=== PATIENT | female | born 1990 | race Hispanic/Latino ===

== ENCOUNTER 2017-09-01 02:03 | Outpatient (CLI) | payer MEDICAID ==
[2017-09-01 02:07] VITALS: BP 126/81
[2017-09-01] MEDS ORDERED: LACTATED RINGERS 500 ML IV ONE (02:20)
[2017-09-01] MEDS ORDERED: TYLENOL PO ONE (02:31)
[2017-09-01] MEDS ORDERED: VISTARIL PO ONE (02:46)
[2017-09-01 03:04] LABS: Bacteria,Urine 1+ /HPF (Negative); Bilirubin,Urine NEG (Negative); Blood,Urine LG (Negative); Color,Urine Yellow (Yellow); Mucus,Urine FEW /HPF; Protein,Urine <15 mg/dL mg/dL (Negative); Urobilinogen,Urine < 2.0 mg/dL (<2.0)
[2017-09-01 03:09] LABS: RBC,Urine > 182.0 /HPF (0.0-6.0)
[2017-09-01] MEDS ORDERED: cefTRIAXone 1 GM in NACL 0.9% 20 ML IV SCH (04:00)
[2017-09-01] MEDS ORDERED: LACTATED RINGERS 500 ML IV SCH (04:00)
== END 2017-09-01 04:15 | disposition home or self-care (01) ==
LOC: TRG 02:03
PROVIDERS: ATTEND Obstetrics & Gynecology
DX: O26.893 Other specified pregnancy related conditions, third trimester (principal); M54.9 Dorsalgia, unspecified; R10.9 Unspecified abdominal pain; Z3A.35 35 weeks gestation of pregnancy
CPT/HCPCS: 59025; 81001; 96360; 96361; 96365; J0696; J7120; Q0177

== ENCOUNTER 2017-09-26 17:55 | Outpatient (CLI) | payer MEDICAID ==
[2017-09-26 19:26] VITALS: BP 100/67
--- NOTE | 2017-09-26 19:34 | Ultrasound Report ---
FINAL REPORT PROCEDURE: US OB LIMITED TECHNIQUE: Real-time limited sonographic examination was performed for evaluation of size, position, heartbeat, fluid volume for each fetus with image documentation (1 or more fetuses). CPT 81063 HISTORY: PRESENTATION COMPARISON: No prior studies are available for comparison. FINDINGS: FETUS IUP: Single living intrauterine . Position: Cephalic. Amniotic fluid volume: Amniotic fluid index measures 12.3 centimeters Heart rate and rhythm: 143 BPM, Regular . IMPRESSION: Amniotic fluid index measures 12.3 centimeters
--- NOTE | 2017-09-26 19:36 | Ultrasound Report ---
FINAL REPORT PROCEDURE: US OB BPP WO NON-STRESS TECHNIQUE: Sonographic evaluation for breathing, movement, tone, and amniotic fluid volume was performed. CPT 46500 HISTORY: well being COMPARISON: No prior studies are available for comparison. FINDINGS: Amniotic fluid volume: Normal-score 2. At least one vertical pocket > 2 cm or more in vertical axis. breathing: Normal-score 2. movement: Normal-score 2. tone: Normal-score 2. Score: 8 of 8. IMPRESSION: Normal biophysical profile.
[2017-09-26] MEDS ORDERED: LACTATED RINGERS 1,000 ML IV SCH (20:00)
== END 2017-09-26 21:05 | disposition home or self-care (01) ==
LOC: TRG 17:55
PROVIDERS: ATTEND Obstetrics & Gynecology
DX: O47.1 False labor at or after 37 completed weeks of gestation (principal); Z3A.38 38 weeks gestation of pregnancy
CPT/HCPCS: 59025; 76815; 76819; J7120

== ENCOUNTER 2017-09-27 10:55 | Outpatient (CLI) | payer MEDICAID ==
[2017-09-27 11:09] VITALS: BP 107/64
== END 2017-09-27 12:18 | disposition home or self-care (01) ==
LOC: TRG 10:55
PROVIDERS: ATTEND Obstetrics & Gynecology
DX: Z34.93 Encounter for supervision of normal pregnancy, unspecified, third trimester (principal); Z3A.39 39 weeks gestation of pregnancy

== ENCOUNTER 2017-09-28 15:31 | Outpatient (CLI) | payer MEDICAID ==
[2017-09-28 16:31] VITALS: BP 99/68
--- NOTE | 2017-09-28 18:09 | Ultrasound Report ---
FINAL REPORT EXAM: US OB BPP WO NON-STRESS HISTORY: well being TECHNIQUE: Biophysical profile obstetrical ultrasound PRIORS: ultrasound BPP 09/26/2017 FINDINGS: Biophysical profile scoring 2 movement 2 tone 2 breathing 2 fluid 8/8 overall score IMPRESSION: Single intrauterine viable with a biophysical profile score 8/8. No change.
--- NOTE | 2017-09-28 18:42 | Ultrasound Report ---
FINAL REPORT EXAM: US OB LIMITED HISTORY: ROBERT TECHNIQUE: Limited obstetrical ultrasound PRIORS: Ob ultrasound 09/26/2017 FINDINGS: LMP: 12/28/2016 clinical Age: 39 W 1 d LMP EDC 10/04/2017 Presentation: Cephalic Activity: Monitored Cardiac motion: 143 BPM using M-mode doppler Amniotic Fluid Volume: Adequate ROBERT 7.0 cm (lowest limits of normal) IMPRESSION: Single intrauterine viable with an approximate age of 39 weeks 1 days.
== END 2017-09-28 18:00 | disposition home or self-care (01) ==
LOC: TRG 15:31
PROVIDERS: ATTEND Obstetrics & Gynecology
DX: O42.92 Full-term premature rupture of membranes, unspecified as to length of time between rupture and onset of labor (principal); Z3A.39 39 weeks gestation of pregnancy
CPT/HCPCS: 76815; 76819

== ENCOUNTER 2017-09-29 13:36 | Outpatient (CLI) | payer MEDICAID ==
[2017-09-29 15:22] VITALS: BP 117/74
[2017-09-29] MEDS ORDERED: LACTATED RINGERS 1,000 ML ONE (17:39)
== END 2017-09-29 18:00 | disposition home or self-care (01) ==
LOC: TRG 13:36
PROVIDERS: ATTEND Obstetrics & Gynecology
DX: O47.1 False labor at or after 37 completed weeks of gestation (principal); Z3A.39 39 weeks gestation of pregnancy
CPT/HCPCS: 96360; J7120

== ENCOUNTER 2017-09-30 02:52 | Inpatient (IN) | payer MEDICAID ==
[2017-09-30] MEDS ORDERED: SUBLIMAZE IV PRN (04:29)
[2017-09-30 04:42] LABS: Hematocrit 28.9 % (30.3-42.9); Mean Corpuscular HGB Conc 35 % (30-34); Mean Corpuscular Hemoglobin 30 pg (28-32); Mean Corpuscular Volume 86 fl (79-97); Platelet Count 282 K/mm3 (140-440); Red Blood Count 3.37 M/mm3 (3.65-5.03); Red Cell Distribution Width 13.4 % (13.2-15.2)
[2017-09-30] MEDS ORDERED: PITOCin/NS 20 UNIT/1000ML DRIP 20 UNITS/1,000 ML BAG IV SCH (05:00)
[2017-09-30] MEDS ORDERED: PITOCin/NS 30 UNIT/500ML 30 UNITS/500 ML BAG IV SCH (08:30)
[2017-09-30] MEDS: LACTATED RINGERS 1,000 ML IV SCH ×2 (08:37→10:15)
[2017-09-30] MEDS ORDERED: ePHEDrine SULFATE ONE (10:56)
--- NOTE | 2017-09-30 11:08 | History and Physical Report ---
History of Present Illness Date of examination: 09/30/17 Date of admission: 09/30/17 04:48 Chief complaint: My water broke History of present illness: Patient is a 27-year-old 4 para 3 who presents with complaint of ruptured membranes. Her EDC is 10/04/2017 which makes her 39 weeks and 3 days. She entered care at 9 weeks and has had an uncomplicated course except for kidney stones and an abnormal Pap smear showing a high-grade lesion. Past History Past Medical History: no pertinent history Past Surgical History: no surgical history Family/Genetic History: none Social history: - Obstetrical History Expected Date of Delivery: 10/04/17 Actual Gestation: 39 Week(s) 3 Day(s) : 4 Para: 2 Number of Living Children: 2 Medications and Allergies Allergies Allergy/AdvReac Type Severity Reaction Status Date / Time azithromycin [From Zithromax] Allergy Severe Anaphylaxis Verified 09/26/17 19:37 Home Medications Medication Instructions Recorded Confirmed Last Taken Type Ranitidine HCl 1 tab PO TID 09/26/17 09/30/17 09/29/17 History Active Meds: Active Medications Fentanyl (Sublimaze) 100 mcg IV Q2H PRN PRN Reason: Labor Pain Last Admin: 09/30/17 07:41 Dose: 100 mcg Lactated Ringer's (Lactated Ringers) 1,000 mls @ 125 mls/hr IV DIRECT MARY Last Admin: 09/30/17 08:37 Dose: 125 mls/hr Oxytocin/Sodium Chloride (Pitocin/Ns 20 Unit/1000ml Drip) 20 units in 1,000 mls @ 125 mls/hr IV DIRECT MARY Oxytocin/Sodium Chloride (Pitocin/Ns 30 Unit/500ml) 30 units in 500 mls @ 4 mls /hr IV TITR MARY; Protocol Last Titration: 09/30/17 10:40 Dose: 12 ml/hr, 12 mls/hr Review of Systems All systems: negative Genitourinary: leakage of fluid, contractions Rectal Exam: deferred - Vital Signs Vital signs: Vital Signs Pulse BP 83 111/69 09/30/17 04:03 09/30/17 04:03 Temp Pulse Resp BP Pulse Ox 98.5 F 96 H 16 149/95 94 09/30/17 10:38 09/30/17 11:03 09/30/17 10:38 09/30/17 11:03 09/30/17 10:42 - Physical Exam Breasts: Cardiovascular: Regular rate, Normal S1, Normal S2 Lungs: Positive: Clear to auscultation, Normal air movement Abdomen: Positive: normal appearance, soft, normal bowel sounds. Negative: distention, tenderness Vulva: both: normal Vagina: Positive: normal moisture. Negative: discharge Cervix: Negative: lesion, discharge Uterus: Positive: normal size, normal contour Adnexa: both: normal Anus/Rectum: Positive: normal perianal skin, heme negative. Negative: rectal mass, hemorrhoids Extremities: Deep Tendon Reflex Grade: Normal +2 - Obstetrical Cervical Dilatation: 1 Cervical Effacement Percentage: 30 station: 3 Uterine Contraction Pattern: Irregular Results Result Diagrams: 09/30/17 04:20 Abnormal lab results 09/30/17 Range/Units 04:20 WBC 12.5 H (4.5-11.0) K/mm3 RBC 3.37 L (3.65-5.03) M/mm3 Hgb 10.0 L (10.1-14.3) gm/dl Hct 28.9 L (30.3-42.9) % MCHC 35 H (30-34) % All other labs normal. Assessment and Plan IUP at 39+ with srom. Admit for labor Augmentation. GBS negative. anticipate .
[2017-09-30] MEDS ORDERED: XYLOCAINE 2% INFILTRATI ONE (11:39)
[2017-09-30] MEDS ORDERED: fentaNYL-BUPIV 2 MCG/ML-0.125% 200 MCG/100 ML BAG EPIDURAL SCH (13:00)
[2017-09-30] MEDS ORDERED: ePHEDrine SULFATE IV PRN (13:00)
[2017-09-30] MEDS ORDERED: NARCAN 2 MG/2 ML IV PRN (13:00)
[2017-09-30] MEDS ORDERED: PHENERGAN PR PRN (16:47)
[2017-09-30] MEDS ORDERED: PHENERGAN PO PRN (16:47)
[2017-09-30] MEDS ORDERED: ZOFRAN IV PRN (16:47)
[2017-09-30] MEDS ORDERED: DULCOLAX PR PRN (16:47)
[2017-09-30] MEDS ORDERED: MILK OF MAGNESIA PO PRN (16:47)
[2017-09-30] MEDS ORDERED: TUCKS PAD TP PRN (16:47)
[2017-09-30] MEDS ORDERED: LANSINOH TP PRN (16:47)
[2017-09-30] MEDS ORDERED: BENADRYL PO PRN (16:47)
[2017-09-30] MEDS ORDERED: SODIUM CHLORIDE FLUSH SYRINGE 10 ML IV NR (17:00)
[2017-09-30] MEDS: NORCO 5/325 PO PRN (17:31)
[2017-09-30] MEDS: MOTRIN PO SCH ×2 (17:32→23:34)
[2017-09-30] MEDS: TYLENOL PO PRN (19:35)
[2017-09-30] MEDS: COLACE PO SCH (21:57)
[2017-10-01] MEDS: NORCO 5/325 PO PRN (02:55)
[2017-10-01] MEDS: MOTRIN PO SCH ×4 (05:50→23:50)
[2017-10-01] MEDS ORDERED: BOOSTRIX IM ONE (06:00)
[2017-10-01 06:20] LABS: Hematocrit 28.6 % (30.3-42.9); Hemoglobin 9.8 gm/dl (10.1-14.3)
--- NOTE | 2017-10-01 08:35 | Procedure Note ---
OB Delivery Note - Delivery Date of Delivery: 10/01/17 Surgeon: FAUZIA MAURER Estimated blood loss: <100cc - Vaginal Delivery presentation: vertex Delivery position: OA Intrapartum events: PROM->1hr before delivery Delivery induction: oxytocin Delivery augmentation: pitocin Delivery monitor: external FHT, external uterine Route of delivery: Delivery placenta: spontaneous Episiotomy: none Delivery laceration: none Anesthesia: epidural - A at 1 minute: 8 (7lb 3oz) at 5 minutes: 9 Infant Gender: Female
--- NOTE | 2017-10-01 08:42 | Progress Note ---
Assessment and Plan A: PPD#1 s/p ; Obesity, Asymptomatic anemia P Routine care. Anticipate discharge tomorrow. Subjective - Subjective Date of service: 10/01/17 Principal diagnosis: PPD#1 s/p Interval history: No overnight events Patient reports: appetite normal, voiding normally, pain well controlled, ambulating normally : doing well Objective - Vital Signs Latest vital signs: Vital Signs Temp Pulse Resp BP BP Pulse Ox 10/01/17 00:00 98.6 F 77 18 114/69 09/30/17 19:40 98.6 F 77 16 101/78 09/30/17 18:28 99.3 F 109 H 18 124/72 97 09/30/17 16:00 98.9 F 107 H 20 133/85 09/30/17 15:46 100 H 112/61 09/30/17 15:31 110 H 123/59 09/30/17 15:26 97.8 F 16 09/30/17 14:30 105 H 108/57 09/30/17 14:15 102 H 110/58 09/30/17 14:13 97.6 F 16 09/30/17 14:05 93 H 107/58 09/30/17 14:01 96 H 105/58 09/30/17 14:00 99.3 F 18 09/30/17 13:14 88 110/57 09/30/17 12:58 106 H 126/67 09/30/17 12:45 99.0 F 20 09/30/17 12:31 90 115/58 09/30/17 12:15 87 112/62 09/30/17 12:14 96 H 119/67 09/30/17 12:11 85 108/58 09/30/17 12:09 99 H 116/58 09/30/17 12:07 94 H 114/55 09/30/17 12:05 96 H 116/56 09/30/17 12:04 113 H 121/57 09/30/17 12:01 95 H 130/62 09/30/17 12:00 130 H 118/61 09/30/17 11:58 131 H 115/55 09/30/17 11:56 112 H 140/66 09/30/17 11:53 112 H 123/80 09/30/17 11:51 107 H 124/74 09/30/17 11:50 106 H 123/75 09/30/17 11:47 105 H 136/67 09/30/17 11:45 98 H 131/64 09/30/17 11:43 93 H 138/62 09/30/17 11:42 92 H 144/61 09/30/17 11:39 87 142/66 09/30/17 11:37 109 H 146/56 09/30/17 11:35 79 137/65 09/30/17 11:33 83 131/63 09/30/17 11:31 99 H 132/77 09/30/17 11:29 92 H 126/74 09/30/17 11:28 106 H 127/75 09/30/17 11:03 96 H 149/95 09/30/17 10:42 87 94 09/30/17 10:41 86 109/67 09/30/17 10:38 98.5 F 16 Intake and Output 09/30/17 10/01/17 10/01/17 22:59 06:59 14:59 Intake Total 300 Output Total 700 Balance -700 300 Intake: Intake, Free Water 300 Output: Urine 700 Indwelling Catheter 700 Other: Total, Output Amount 600 - Exam Breasts: Present: deferred Cardiovascular: Present: Regular rate Lungs: Present: Clear to auscultation Abdomen: Present: soft Uterus: Present: fundal height at umbilicus Extremities: Present: normal - Labs Labs: Abnormal lab results 10/01/17 Range/Units 05:53 Hgb 9.8 L (10.1-14.3) gm/dl Hct 28.6 L (30.3-42.9) %
--- NOTE | 2017-10-01 08:50 | Discharge Summary ---
Providers - Providers Date of Admission: 09/30/17 04:48 Date of discharge: 10/01/17 Attending physician: LILLIE ZARATE MD Primary care physician: LILLIE ZARATE MD Hospitalization Reason for admission: rupture of membranes Delivery: Procedure details: Please see delivery note. Episiotomy: none Laceration: none Other procedures: none complications: none Discharge diagnosis: IUP at term delivered [place] baby: female Hospital course: Pt was admitted with rupture of membranes and went on to have an which she tolerated well. Her course was uncomplicated and she met discharge criteria on PPD#2. Condition at discharge: Stable Disposition: DC-01 TO HOME OR SELFCARE - Discharge Diagnoses (1) Term of female Status: Acute (2) Obesity Status: Acute (3) Anemia Status: Acute Plan - Provider Discharge Summary Activity: routine, no sex for 6 weeks, no heavy lifting 4 weeks, no strenuous exercise Diet: routine Instructions: routine Additional instructions: [] Smoking cessation referral if applicable(refer to patient education folder for contact #) [] Refer to [facility]'s [facility] Booklet Call your doctor immediately for: * Fever > 100.5 * Heavy vaginal bleeding ( >1 pad per hour) * Severe persistent headache * Shortness of breath * Reddened, hot, painful area to leg or breast * Drainage or odor from incision. * Keep incision clean and dry at all times and follow doctor's instructions regarding bathing/showering - Follow up plan Follow up: HARRIS MONTENEGRO MD [Staff Physician] - 7 Days
[2017-10-01] MEDS: PRENATAL VITAMIN PO SCH (09:27)
[2017-10-01] MEDS: TYLENOL PO PRN (09:27)
[2017-10-01] MEDS: COLACE PO SCH ×2 (09:30→22:19)
[2017-10-02] MEDS: MOTRIN PO SCH ×2 (06:20→12:24)
[2017-10-02] MEDS: NORCO 5/325 PO PRN (08:34)
[2017-10-02] MEDS: PRENATAL VITAMIN PO SCH (10:15)
[2017-10-02] MEDS: COLACE PO SCH (10:15)
[2017-10-02 14:39] VITALS: BP 114/71
== END 2017-10-02 14:15 | disposition home or self-care (01) | DRG 775 ==
LOC: TRG 02:52 → LD 04:48 → OB 16:38
PROVIDERS: ADMIT Obstetrics & Gynecology; ATTEND Obstetrics & Gynecology
PROC: 10E0XZZ Delivery of Products of Conception, External Approach (ICD-10-PCS; principal; 2017-10-01)
PROC: 3E0R3BZ Introduction of Anesthetic Agent into Spinal Canal, Percutaneous Approach (ICD-10-PCS; 2017-10-01)
PROC: 00HU33Z Insertion of Infusion Device into Spinal Canal, Percutaneous Approach (ICD-10-PCS; 2017-10-01)
PROC: 3E033VJ Introduction of Other Hormone into Peripheral Vein, Percutaneous Approach (ICD-10-PCS; 2017-10-01)
DX: O42.02 Full-term premature rupture of membranes, onset of labor within 24 hours of rupture (principal); Z3A.39 39 weeks gestation of pregnancy; Z37.0 Single live birth; O99.214 Obesity complicating childbirth; E66.9 Obesity, unspecified; Z68.41 Body mass index [BMI] 40.0-44.9, adult; O99.02 Anemia complicating childbirth; D64.9 Anemia, unspecified; Z88.8 Allergy status to other drugs, medicaments and biological substances
CPT/HCPCS: 36415; 85014; 85018; 85027; 86592; 86850; 86900; 86901; 88307; 90715; 99211; A6250; G0463; J2590; J3010; J7120

== ENCOUNTER 2017-12-11 06:13 | Day surgery (SDC) | payer MEDICAID ==
--- NOTE | 2017-12-10 17:14 | History and Physical Report ---
History of Present Illness Date of examination: 12/05/17 Chief complaint: undesired fertility, HSIL pap smear History of present illness: Pt is a 27 year old who presents for surgical sterilization despite awareness of long-acting reversible contraceptives. She also had a HGSIL pap smear and desires surgical management. Past History Past Medical History: kidney stones [employer] History: abnormal PAP smear, chlamydia (remote history), gonorrhea (remote history ) Family/Genetic History: none Social history: no significant social history - Obstetrical History : 4 Medications and Allergies Allergies Allergy/AdvReac Type Severity Reaction Status Date / Time azithromycin [From Zithromax] Allergy Severe Anaphylaxis Verified 12/10/17 13:31 Home Medications Medication Instructions Recorded Confirmed Last Taken Type No Known Home Medications [No 12/10/17 12/10/17 Unknown History Reported Home Medications] - Physical Exam Breasts: Positive: deferred Cardiovascular: Regular rate Lungs: Positive: Clear to auscultation Abdomen: Positive: soft (obese) Extremities: Positive: normal Results All other labs normal. Assessment and Plan A: Undesired Fertility HGSIL pap smear Obesity P: Proceed with laparoscopic bilateral tubal ligation, Loop Electrosurgical Excision Procedure (LEEP) and other indicated procedures.
[~2017-12-11 06:13] MED LIST: ANCEF/STERILE WATER 2 GM/20 ML 2 GM/20 ML SYRINGE IV NR; LACTATED RINGERS 1,000 ML IV SCH
[2017-12-11] MEDS ORDERED: NACL BACTERIOSTATIC INFILTRATI ONE (06:35)
[2017-12-11] MEDS ORDERED: MARCAINE 0.5% 30 ML INFILTRATI ONE (07:15)
[2017-12-11] MEDS ORDERED: MONSEL'S TP ONE ×2 (07:15→09:00)
[2017-12-11] MEDS ORDERED: XYLOCAINE 1%/ EPI 1:100,000 INFILTRATI ONE ×2 (07:15→07:17)
[2017-12-11] MEDS ORDERED: LUGOL'S SOLUTION 5% TP ONE ×3 (07:15→08:55)
[2017-12-11] MEDS ORDERED: ACETIC ACID 3% SOLN TP ONE (07:16)
[2017-12-11] MEDS ORDERED: XYLOCAINE MPF 2% ONE (07:16)
[2017-12-11] MEDS ORDERED: DILAUDID ONE ×3 (07:16→09:55)
[2017-12-11] MEDS ORDERED: ZEMURON IV ONE (07:16)
[2017-12-11] MEDS ORDERED: DIPRIVAN 10 MG/ML IV ONE (07:16)
[2017-12-11 07:19] LABS: Hematocrit 34.5 % (30.3-42.9); Hemoglobin 11.7 gm/dl (10.1-14.3); Mean Corpuscular HGB Conc 34 % (30-34); Mean Corpuscular Hemoglobin 29 pg (28-32); Mean Corpuscular Volume 86 fl (79-97); Platelet Count 278 K/mm3 (140-440); Red Cell Distribution Width 13.5 % (13.2-15.2)
--- NOTE | 2017-12-11 07:26 | Anesthesia Consultation ---
Anesthesia Consult and Med Hx Date of service: 12/11/17 - Airway Anesthetic Teeth Evaluation: Good, Partials ROM Head & Neck: Adequate Mental/Hyoid Distance: Adequate Mallampati Class: Class II Intubation Access Assessment: Probably Good - Pulmonary Exam CTA: Yes - Cardiac Exam Cardiac Exam: RRR - Pre-Operative Health Status ASA Pre-Surgery Classification: ASA2 - Pulmonary Hx Smoking: Yes (Former) Hx Asthma: No COPD: No Hx Pneumonia: No - Cardiovascular System Hx Hypertension: No - Central Nervous System Hx Seizures: No Hx Psychiatric Problems: No - Endocrine Hx Renal Disease: No Hx End Stage Renal Disease: No Hx Hypothyroidism: No Hx Hyperthyroidism: No - Hematic Hx Anemia: Yes (Past hx) Hx Sickle Cell Disease: No - Other Systems Hx Alcohol Use: No Hx Cancer: No
--- NOTE | 2017-12-11 07:26 | Anesthesia Day of Surgery ---
Anesthesia Day of Surgery - Day of Surgery Patient Examined: Yes Patient H&P Reviewed: Yes Patient is NPO: Yes
[2017-12-11] MEDS ORDERED: NACL 0.9% 100 ML ONE (07:55)
[2017-12-11] MEDS ORDERED: Vasostrict ONE (07:56)
[2017-12-11] MEDS ORDERED: ZOFRAN ONE (08:15)
[2017-12-11] MEDS ORDERED: DECADRON ONE (08:15)
[2017-12-11] MEDS ORDERED: BLOXIVERZ ONE (08:15)
[2017-12-11] MEDS ORDERED: ROBINUL ONE (08:30)
[2017-12-11] MEDS ORDERED: MARCAINE 0.5% INFILTRATI ONE (08:45)
[2017-12-11] MEDS ORDERED: Vasostrict IM ONE (08:52)
[2017-12-11] MEDS ORDERED: GELFOAM TP ONE ×2 (09:00→09:05)
[2017-12-11] MEDS ORDERED: SUBLIMAZE ONE (09:23)
--- NOTE | 2017-12-11 09:25 | Operative Report ---
Operative Report Operative Report: Date of procedure: December 11, 2017 Preoperative diagnosis: 1) Multiparity desires permanent sterilization 2) HSIL pap with discordant colposcopic biopsies Postoperative diagnosis: Same Procedure: 1) Laparoscopic bilateral tubal ligation via Filshie clip method 2) LEEP (Loop electrosurgical excision procedure) Surgeon: Jada Araiza M.D. Anesthesia: General endotracheal anesthesia Findings: 1) Small anteverted uterus 2) Normal appearing ovaries and tubes 3) Circumferential non-staining area of cervix after application of Lugol's solution Estimated blood loss: 50 mL Urine output: 280 mL; clear Specimens: ectocervix tagged atg 12 o'clock Complications: None. Counts correct 2 Disposition: Stable to PACU Indications for procedure: Pt is a 27 year old who presents for surgical sterilization despite awareness of long-acting reversible contraceptives. She also had a HGSIL pap smear with discordant colposcopic biopsies revealing NA I who desires surgical management. Operation in detail: After the risks, benefits, alternatives and complications of the procedure were explained to the patient, she gave informed consent for the procedure. She was subsequently taken to the operating room with her IV noted to be running and placed in the dorsal supine position with sequential compression devices functioning. General endotracheal anesthesia was then induced without difficulty. An exam under anesthesia was then performed yielding a 8-10 wk sized anteverted uterus. The patient was then placed in placement dorsal lithotomy position and prepped and draped in normal sterile fashion. A timeout was then performed. The bladder was then drained of urine yielding 180 mL of clear urine. An open sided speculum was placed into the vagina for visualization of the cervix. A single-tooth tenaculum was placed on the anterior lip of the cervix for traction. A uterine manipulator was then placed. The single-tooth tenaculum and speculum were then removed from the vagina. The surgeon's gloves were then changed. Attention was then turned to entry into the abdominal cavity. A 5 mm infraumbilical incision was made with an 11 blade. The skin was grasped on either side of the umbilicus and tented up. The Veres needle was placed into the peritoneal cavity, confirmed with a saline drop test. The abdomen was then insufflated with CO2 gas to a pressure of 15 mmHg. A 5 mm Visiport trocar was then placed. An anatomic survey was then performed with findings as indicated above. A second incision was created 4 cm superior to the pubic symphysis in the midline measuring 8 mm. An 8 mm trocar was then placed under direct visualization. The patient was placed in Trendelenburg position. The uterus was elevated, and two Filshie clips were then placed across each fallopian tube at the level of the ampullae. At this time, all instruments were removed from the abdominal cavity. The pneumoperitoneum was released, and Valsalva maneuver was performed. All trocars were removed from the peritoneal cavity. The incisions were then infiltrated with half percent Marcaine. The incisions were then reapproximated with 4-0 Monocryl in a subcuticular fashion. They were then covered with skin glue. All instruments were then removed from the vagina atraumatically. At this time, attention was turned to the LEEP. The bladder was drained again of 100 mL of urine. A coated speculum was then placed in the vagina for visualization of the cervix. The cervix was injected with dilute pitressin at 12, 3 , 6, and 9 o clock. Lugol's solution was then placed on cervix with a circumferential non-staining area. A large loop was used to excise an ectocervical specimen that was sent to pathology. Rollerball cautery was used to obtain hemostasis of the cervical bed. A figure of eight of 2-0 Vicryl was placed at 5 o'clock to obtain hemostasis. Monsel's solution was placed over the cervical bed. Gel foam was placaed in the cervical bed. Hemostasis was noted. All instruments were removed from the vagina and the procedure was then ended. The patient was then replaced into the dorsal supine position and extubated without difficulty. She was then taken to the PACU in stable condition. All counts were correct x 2.
--- NOTE | 2017-12-11 09:35 | Short Stay Summary ---
Short Stay Documentation Date of service: 12/11/17 - History H&P: dictated Social history: no significant social history - Allergies and Medications Current Medications: Allergies azithromycin [From Zithromax] Allergy (Severe, Verified 12/10/17 13:31) Anaphylaxis Home Medications Medication Instructions Recorded Confirmed Last Taken Type Ibuprofen 800 mg PO Q6H PRN 12/11/17 12/11/17 12/09/17 History Active Medications Cefazolin Sodium (Ancef/Sterile Water 2 Gm/20 Ml) 2 gm in 20 mls @ 80 mls/hr IV PREOP NR; Protocol Stop: 12/11/17 23:01 Lactated Ringer's (Lactated Ringers) 1,000 mls @ 100 mls/hr IV DIRECT MARY Last Admin: 12/11/17 07:00 Dose: 100 mls/hr - Physical exam Breasts: deferred - Brief post op/procedure progress note Date of procedure: 12/11/17 Pre-op diagnosis: 1) Undesired Fertility 2) HSIL pap Post-op diagnosis: same Procedure: 1) Laparoscopic bilateral tubal ligation via Filshie clip method 2) LEEP (Loop electrosurgical excision procedure) Anesthesia: GETA Findings: 1) Small anteverted uterus 2) Normal appearing ovaries and tubes 3) Circumferential non-staining area of cervix after application of Lugol's solution Surgeon: HARRIS MONTENEGRO Estimated blood loss: 50-100ml (50 mL) Pathology: list (ectocervix) Specimen disposition: to lab Condition: stable - Hospital course Hospital course: Pt tolerated laparoscopic bilateral tubal ligation and LEEP procedures well. She was observed in the PACU until she met discharge criteria. She will follow up in 1 week for a postoperative visit. - Disposition Condition at discharge: Stable Disposition: - TO HOME OR SELFCARE - Discharge Diagnoses (1) Encounter for sterilization Status: Acute (2) HSIL on Pap smear of cervix Status: Acute (3) Obesity Status: Acute Qualifiers: Obesity type: unspecified obesity type Obesity classification: adult class 3 (BMI >= 40) Serious obesity comorbidity presence: unspecified whether serious comorbidity present Body mass index: BMI 40.0-44.9 Qualified Code(s) : E66.9 - Obesity, unspecified; Z68.41 - Body mass index (BMI) 40.0-44.9, adult Short Stay Discharge Plan Activity: other (Nothing in vagina, no lifting over 20 pounds, no tub baths for 4 weeks ) Weight Bearing Status: Full Weight Bearing Diet: regular Additional Instructions: PUMP AND DISCARD BREAST MILK FOR 24 HOURS AFTER SURGERY. Follow up with: HARRIS MONTENEGRO MD [Staff Physician] - 7 Days Prescriptions: Ibuprofen [Motrin] 800 mg PO Q8HR PRN #30 tab PRN Reason: Pain , Severe (7-10) oxyCODONE /ACETAMINOPHEN [Percocet 5/325] 1 tab PO Q6HR PRN #40 tablet PRN Reason: Pain
[2017-12-11] MEDS ORDERED: TORADOL ONE (09:38)
[2017-12-11] MEDS ORDERED: TORADOL IV NR (09:44)
[2017-12-11] MEDS: DILAUDID IV PRN ×4 (09:54→10:32)
[2017-12-11] MEDS ORDERED: PERCOCET 5/325 PO NR (11:24)
[2017-12-11 12:35] VITALS: BP 113/68
== END 2017-12-11 12:30 | disposition home or self-care (01) ==
LOC: OR 06:13
PROVIDERS: ATTEND Obstetrics & Gynecology
DX: Z30.2 Encounter for sterilization (principal); E66.9 Obesity, unspecified; Z88.1 Allergy status to other antibiotic agents; Z87.891 Personal history of nicotine dependence
CPT/HCPCS: 36415; 57522; 58670; 81025; 85027; 86850; 86900; 86901; 88307; 88342; A4649; J0690; J1100; J1170; J1885; J2405; J2704; J2710; J3010; J7120; 88305

== ENCOUNTER 2019-06-25 15:20 | Emergency (ER) | payer MEDICAID ==
[2019-06-25 17:52] LABS: Bilirubin,Urine NEG (Negative); Blood,Urine NEG (Negative); Color,Urine Yellow (Yellow); Mucus,Urine FEW /HPF; Protein,Urine <15 mg/dL mg/dL (Negative); Urobilinogen,Urine < 2.0 mg/dL (<2.0)
[2019-06-25 18:00] LABS: Benzodiazepines Screen,Urine PRESUMPTIVE NEGATIVE; Cannabinoid Screen,Urine PRESUMPTIVE NEGATIVE; Cocaine Screen,Urine PRESUMPTIVE NEGATIVE; Methadone Screen,Urine PRESUMPTIVE NEGATIVE; Opiate Screen,Urine PRESUMPTIVE NEGATIVE
[2019-06-25 18:18] LABS: Amphetamine Screen,Urine PRESUMPTIVE POSITIVE
[2019-06-25] MEDS ORDERED: SODIUM CHLORIDE 0.9% 1000 ML 1,000 ML IV ONE (19:50)
[2019-06-25 20:12] LABS: Basophils # (Auto) 0.1 K/mm3 (0.0-0.1); Basophils % (Auto) 0.5 % (0.0-1.8); Eosinophils % (Auto) 0.1 % (0.0-4.3); Hematocrit 35.9 % (30.3-42.9); Hemoglobin 12.1 gm/dl (10.1-14.3); Lymphocytes # (Auto) 2.5 K/mm3 (1.2-5.4); Lymphocytes % (Auto) 21.8 % (13.4-35.0); Mean Corpuscular HGB Conc 34 % (30-34); Mean Corpuscular Volume 87 fl (79-97); Monocytes # (Auto) 1.1 K/mm3 (0.0-0.8); Monocytes % (Auto) 9.5 % (0.0-7.3); Platelet Count 276 K/mm3 (140-440); Red Blood Count 4.15 M/mm3 (3.65-5.03)
[2019-06-25] MEDS ORDERED: ONDANSETRON 4 MG/2 ML INJ IV ONE (20:28)
--- NOTE | 2019-06-25 20:28 | Emergency Department Report ---
ED General Adult HPI - General Chief complaint: Alcohol Stated complaint: OVERDOSE Time Seen by Provider: 06/25/19 19:22 Source: patient, EMS Mode of arrival: Stretcher Limitations: No Limitations - History of Present Illness Initial comments: Patient presents to the emergency department with a chief complaint of not feeling well after drinking homemade alcohol. Patient states that she was at a friend's house and partake in drinking homemade alcohol. The patient states that her friend makes eye called by mixing it with liquor and certain juices. Patient states after drinking the alcohol she began to feel very anxious, felt numbness to her body, and nauseous. Patient denies any recreational drug use. Patient's boyfriend H is on initial presentation. Patient denies chest pain, shortness breath, abdominal pain. -: Sudden Severity scale (0 -10): 0 Consistency: constant Improves with: none Worsens with: none Associated Symptoms: denies other symptoms Treatments Prior to Arrival: none - Related Data Home Medications Medication Instructions Recorded Confirmed Last Taken Ibuprofen [Ibuprofen 800] 800 mg PO Q6H PRN 12/11/17 12/11/17 12/09/17 Previous Rx's Medication Instructions Recorded Last Taken Type Ibuprofen [Motrin] 800 mg PO Q8HR PRN #30 tab 12/11/17 Unknown Rx oxyCODONE /ACETAMINOPHEN [Percocet 1 tab PO Q6HR PRN #40 tablet 12/11/17 Unknown Rx 5/325] Allergies Allergy/AdvReac Type Severity Reaction Status Date / Time azithromycin [From Zithromax] Allergy Severe Anaphylaxis Verified 12/10/17 13:31 ED Review of Systems ROS: Stated complaint: OVERDOSE Other details as noted in HPI Comment: All other systems reviewed and negative Constitutional: denies: chills, fever Eyes: denies: eye pain, eye discharge, vision change ENT: denies: ear pain, throat pain Respiratory: denies: cough, shortness of breath, wheezing Cardiovascular: denies: chest pain, palpitations Endocrine: no symptoms reported Gastrointestinal: denies: abdominal pain, nausea, diarrhea Genitourinary: denies: urgency, dysuria, discharge Musculoskeletal: denies: back pain, joint swelling, arthralgia Skin: denies: rash, lesions Neurological: denies: headache, weakness, paresthesias Psychiatric: denies: anxiety, depression Hematological/Lymphatic: denies: easy bleeding, easy bruising ED Past Medical Hx - Past Medical History Hx Hypertension: No Hx Congestive Heart Failure: No Hx Diabetes: No Hx Deep Vein Thrombosis: No Hx Renal Disease: No Hx Sickle Cell Disease: No Hx Headaches / Migraines: Yes (Migraines) Hx Seizures: No Hx Kidney Stones: Yes Hx Asthma: No Hx COPD: No Hx HIV: No - Social History Smoking Status: Unknown if ever smoked - Medications Home Medications: Home Medications Medication Instructions Recorded Confirmed Last Taken Type Ibuprofen [Ibuprofen 800] 800 mg PO Q6H PRN 12/11/17 12/11/17 12/09/17 History Ibuprofen [Motrin] 800 mg PO Q8HR PRN #30 tab 12/11/17 Unknown Rx oxyCODONE /ACETAMINOPHEN [Percocet 1 tab PO Q6HR PRN #40 tablet 12/11/17 Unknown Rx 5/325] ED Physical Exam - General Limitations: No Limitations General appearance: alert, in no apparent distress, other (anxious) - Head Head exam: Present: atraumatic, normocephalic - Eye Eye exam: Present: normal appearance, PERRL, EOMI - ENT ENT exam: Present: mucous membranes moist - Neck Neck exam: Present: normal inspection - Respiratory Respiratory exam: Present: normal lung sounds bilaterally. Absent: respiratory distress - Cardiovascular Cardiovascular Exam: Present: normal rhythm, tachycardia. Absent: systolic murmur, diastolic murmur, rubs, gallop - GI/Abdominal GI/Abdominal exam: Present: soft, normal bowel sounds. Absent: distended, tenderness - Extremities Exam Extremities exam: Present: normal inspection - Back Exam Back exam: Present: normal inspection - Neurological Exam Neurological exam: Present: alert, oriented X3, CN II-XII intact. Absent: motor sensory deficit - Psychiatric Psychiatric exam: Present: normal affect, normal mood - Skin Skin exam: Present: warm, dry, intact, normal color. Absent: rash ED Course Vital Signs 06/25/19 06/25/19 18:25 19:45 Temperature 98.4 F 98 F Pulse Rate 131 H 124 H Respiratory 20 18 Rate Blood Pressure 134/76 122/68 [Left] O2 Sat by Pulse 100 98 Oximetry ED Medical Decision Making - Lab Data Result diagrams: 06/25/19 19:59 06/25/19 19:59 Lab Results 06/25/19 06/25/19 06/25/19 Range/Units 17:30 17:30 19:59 WBC 11.5 H (4.5-11.0) K/mm3 RBC 4.15 (3.65-5.03) M/mm3 Hgb 12.1 (10.1-14.3) gm/dl Hct 35.9 (30.3-42.9) % MCV 87 (79-97) fl MCH 29 (28-32) pg MCHC 34 (30-34) % RDW 14.0 (13.2-15.2) % Plt Count 276 (140-440) K/mm3 Lymph % (Auto) 21.8 (13.4-35.0) % Davis % (Auto) 9.5 H (0.0-7.3) % Eos % (Auto) 0.1 (0.0-4.3) % Baso % (Auto) 0.5 (0.0-1.8) % Lymph # 2.5 (1.2-5.4) K/mm3 Davis # 1.1 H (0.0-0.8) K/mm3 Eos # 0.0 (0.0-0.4) K/mm3 Baso # 0.1 (0.0-0.1) K/mm3 Seg Neutrophils % 68.1 (40.0-70.0) % Seg Neutrophils # 7.8 H (1.8-7.7) K/mm3 Sodium (137-145) mmol/L Potassium (3.6-5.0) mmol/L Chloride (98-107) mmol/L Carbon Dioxide (22-30) mmol/L Anion Gap mmol/L BUN (7-17) mg/dL Creatinine (0.7-1.2) mg/dL Estimated GFR ml/min BUN/Creatinine Ratio % Glucose (65-100) mg/dL Calcium (8.4-10.2) mg/dL Total Bilirubin (0.1-1.2) mg/dL AST (5-40) units/L ALT (7-56) units/L Alkaline Phosphatase (35-129) units/L Total Protein (6.3-8.2) g/dL Albumin (3.9-5) g/dL Albumin/Globulin Ratio % Urine Color Yellow (Yellow) Urine Turbidity Slightly-cloudy (Clear) Urine pH 6.0 (5.0-7.0) Ur Specific [place] 1.023 (1.003-1.030) Urine Protein <15 mg/dl (Negative) mg/dL Urine Glucose (UA) Neg (Negative) mg/dL Urine Ketones 80 (Negative) mg/dL Urine Blood Neg (Negative) Urine Nitrite Neg (Negative) Urine Bilirubin Neg (Negative) Urine Urobilinogen < 2.0 (<2.0) mg/dL Ur Leukocyte Esterase Tr (Negative) Urine WBC (Auto) 1.0 (0.0-6.0) /HPF Urine RBC (Auto) 1.0 (0.0-6.0) /HPF U Epithel Cells (Auto) 11.0 (0-13.0) /HPF Urine Mucus Few /HPF Salicylates (2.8-20.0) mg/dL Urine Opiates Screen Presumptive negative Urine Methadone Screen Presumptive negative Acetaminophen (10.0-30.0) ug/mL Ur Barbiturates Screen Presumptive negative Ur Phencyclidine Scrn Presumptive negative Ur Amphetamines Screen Presumptive positive U Benzodiazepines Scrn Presumptive negative Urine Cocaine Screen Presumptive negative U Marijuana (THC) Screen Presumptive negative Drugs of Abuse Note Disclamer Plasma/Serum Alcohol (0-0.07) % 06/25/19 06/25/19 06/25/19 Range/Units 19:59 19:59 19:59 WBC (4.5-11.0) K/mm3 RBC (3.65-5.03) M/mm3 Hgb (10.1-14.3) gm/dl Hct (30.3-42.9) % MCV (79-97) fl MCH (28-32) pg MCHC (30-34) % RDW (13.2-15.2) % Plt Count (140-440) K/mm3 Lymph % (Auto) (13.4-35.0) % Davis % (Auto) (0.0-7.3) % Eos % (Auto) (0.0-4.3) % Baso % (Auto) (0.0-1.8) % Lymph # (1.2-5.4) K/mm3 Davis # (0.0-0.8) K/mm3 Eos # (0.0-0.4) K/mm3 Baso # (0.0-0.1) K/mm3 Seg Neutrophils % (40.0-70.0) % Seg Neutrophils # (1.8-7.7) K/mm3 Sodium 141 (137-145) mmol/L Potassium 3.7 (3.6-5.0) mmol/L Chloride 104.4 (98-107) mmol/L Carbon Dioxide 18 L (22-30) mmol/L Anion Gap 22 mmol/L BUN 15 (7-17) mg/dL Creatinine 0.8 (0.7-1.2) mg/dL Estimated GFR > 60 ml/min BUN/Creatinine Ratio 19 % Glucose 87 (65-100) mg/dL Calcium 9.7 (8.4-10.2) mg/dL Total Bilirubin 0.40 (0.1-1.2) mg/dL AST 29 (5-40) units/L ALT 28 (7-56) units/L Alkaline Phosphatase 55 (35-129) units/L Total Protein 7.6 (6.3-8.2) g/dL Albumin 4.5 (3.9-5) g/dL Albumin/Globulin Ratio 1.5 % Urine Color (Yellow) Urine Turbidity (Clear) Urine pH (5.0-7.0) Ur Specific [place] (1.003-1.030) Urine Protein (Negative) mg/dL Urine Glucose (UA) (Negative) mg/dL Urine Ketones (Negative) mg/dL Urine Blood (Negative) Urine Nitrite (Negative) Urine Bilirubin (Negative) Urine Urobilinogen (<2.0) mg/dL Ur Leukocyte Esterase (Negative) Urine WBC (Auto) (0.0-6.0) /HPF Urine RBC (Auto) (0.0-6.0) /HPF U Epithel Cells (Auto) (0-13.0) /HPF Urine Mucus /HPF Salicylates < 0.3 L (2.8-20.0) mg/dL Urine Opiates Screen Urine Methadone Screen Acetaminophen < 5.0 L (10.0-30.0) ug/mL Ur Barbiturates Screen Ur Phencyclidine Scrn Ur Amphetamines Screen U Benzodiazepines Scrn Urine Cocaine Screen U Marijuana (THC) Screen Drugs of Abuse Note Plasma/Serum Alcohol (0-0.07) % 06/25/19 Range/Units 19:59 WBC (4.5-11.0) K/mm3 RBC (3.65-5.03) M/mm3 Hgb (10.1-14.3) gm/dl Hct (30.3-42.9) % MCV (79-97) fl MCH (28-32) pg MCHC (30-34) % RDW (13.2-15.2) % Plt Count (140-440) K/mm3 Lymph % (Auto) (13.4-35.0) % Davis % (Auto) (0.0-7.3) % Eos % (Auto) (0.0-4.3) % Baso % (Auto) (0.0-1.8) % Lymph # (1.2-5.4) K/mm3 Davis # (0.0-0.8) K/mm3 Eos # (0.0-0.4) K/mm3 Baso # (0.0-0.1) K/mm3 Seg Neutrophils % (40.0-70.0) % Seg Neutrophils # (1.8-7.7) K/mm3 Sodium (137-145) mmol/L Potassium (3.6-5.0) mmol/L Chloride (98-107) mmol/L Carbon Dioxide (22-30) mmol/L Anion Gap mmol/L BUN (7-17) mg/dL Creatinine (0.7-1.2) mg/dL Estimated GFR ml/min BUN/Creatinine Ratio % Glucose (65-100) mg/dL Calcium (8.4-10.2) mg/dL Total Bilirubin (0.1-1.2) mg/dL AST (5-40) units/L ALT (7-56) units/L Alkaline Phosphatase (35-129) units/L Total Protein (6.3-8.2) g/dL Albumin (3.9-5) g/dL Albumin/Globulin Ratio % Urine Color (Yellow) Urine Turbidity (Clear) Urine pH (5.0-7.0) Ur Specific [place] (1.003-1.030) Urine Protein (Negative) mg/dL Urine Glucose (UA) (Negative) mg/dL Urine Ketones (Negative) mg/dL Urine Blood (Negative) Urine Nitrite (Negative) Urine Bilirubin (Negative) Urine Urobilinogen (<2.0) mg/dL Ur Leukocyte Esterase (Negative) Urine WBC (Auto) (0.0-6.0) /HPF Urine RBC (Auto) (0.0-6.0) /HPF U Epithel Cells (Auto) (0-13.0) /HPF Urine Mucus /HPF Salicylates (2.8-20.0) mg/dL Urine Opiates Screen Urine Methadone Screen Acetaminophen (10.0-30.0) ug/mL Ur Barbiturates Screen Ur Phencyclidine Scrn Ur Amphetamines Screen U Benzodiazepines Scrn Urine Cocaine Screen U Marijuana (THC) Screen Drugs of Abuse Note Plasma/Serum Alcohol < 0.01 (0-0.07) % - Radiology Data Radiology results: report reviewed - Medical Decision Making Results discussed with patient Critical care attestation.: If time is entered above; I have spent that time in minutes in the direct care of this critically ill patient, excluding procedure time. ED Disposition Clinical Impression: Amphetamine adverse reaction, Alcohol ingestion Disposition: DC-01 TO HOME OR SELFCARE Is pt being admited?: No Does the pt Need Aspirin: No Condition: Stable Instructions: Amphetamine (By mouth) Additional Instructions: return if worse Referrals: PR[facility] CARE,MD [Primary Care Provider] - 3-5 Days [facility] [Provider Group] - 3-5 Days [facility] [Provider Group] - 3-5 Days Time of Disposition: 22:08
[2019-06-25 20:42] LABS: Alanine Aminotransferase 28 units/L (7-56); Albumin 4.5 g/dL (3.9-5); BUN/Creatinine Ratio 19; Blood Urea Nitrogen 15 mg/dL (7-17); Calcium 9.7 mg/dL (8.4-10.2); Hemolysis Index 6
[2019-06-25 23:16] VITALS: BP 122/52
== END 2019-06-25 22:57 | disposition home or self-care (01) ==
LOC: ED 15:20
DX: T51.8X1A Toxic effect of other alcohols, accidental (unintentional), initial encounter (principal); T43.625A Adverse effect of amphetamines, initial encounter; G43.909 Migraine, unspecified, not intractable, without status migrainosus; Z87.442 Personal history of urinary calculi; Z79.899 Other long term (current) drug therapy; Z88.8 Allergy status to other drugs, medicaments and biological substances; X58.XXXA Exposure to other specified factors, initial encounter; Y93.89 Activity, other specified; Y92.89 Other specified places as the place of occurrence of the external cause; Y99.8 Other external cause status
CPT/HCPCS: 36415; 80053; 80307; 81001; 82693; 85025; 96374; 99284; J2405; J7030; 80320; G0480